=== PATIENT | female | born 1955 | race African-American/Black ===

== ENCOUNTER 2018-02-24 14:13 | Outpatient (CLI) | payer OTHER | END 2018-02-24 14:14 | disposition home or self-care (01) | LOC: BICMAMMO 14:13 | PROVIDERS: ATTEND Internal Medicine | DX: Z12.31 Encounter for screening mammogram for malignant neoplasm of breast (principal) | CPT/HCPCS: 77063; 77067 ==

== ENCOUNTER 2021-10-20 08:51 | Outpatient (CLI) | payer MEDICARE | END 2021-10-20 08:52 | disposition home or self-care (01) | LOC: BICMAMMO 08:51 | PROVIDERS: ATTEND Nurse Practitioner Family | DX: Z12.31 Encounter for screening mammogram for malignant neoplasm of breast (principal) | CPT/HCPCS: 77063; 77067 ==

== ENCOUNTER 2023-02-21 08:02 | Outpatient (CLI) | payer MEDICARE, OTHER | END 2023-02-21 08:03 | disposition home or self-care (01) | LOC: BICMAMMO 08:02 | PROVIDERS: ATTEND Nurse Practitioner Family | DX: Z12.31 Encounter for screening mammogram for malignant neoplasm of breast (principal) | CPT/HCPCS: 77063; 77067 ==

== ENCOUNTER 2024-02-24 07:59 | Outpatient (CLI) | payer MEDICARE | END 2024-02-24 08:00 | disposition home or self-care (01) | LOC: BICMAMMO 07:59 | PROVIDERS: ATTEND Nurse Practitioner Family | DX: Z12.31 Encounter for screening mammogram for malignant neoplasm of breast (principal) | CPT/HCPCS: 77063; 77067 ==

== ENCOUNTER 2025-01-19 08:01 | Outpatient (CLI) | payer MEDICARE | END 2025-01-19 08:02 | disposition home or self-care (01) | LOC: BICRAD 08:01 | PROVIDERS: ATTEND Nurse Practitioner Family | DX: M25.561 Pain in right knee (principal); M17.11 Unilateral primary osteoarthritis, right knee; Z98.890 Other specified postprocedural states | CPT/HCPCS: 73565 ==

== ENCOUNTER 2025-02-25 07:49 | Outpatient (CLI) | payer MEDICARE | END 2025-02-25 07:50 | disposition home or self-care (01) | LOC: BICMAMMO 07:49 | PROVIDERS: ATTEND Nurse Practitioner Family | DX: Z12.31 Encounter for screening mammogram for malignant neoplasm of breast (principal) | CPT/HCPCS: 77063; 77067 ==